=== PATIENT | female | born 1980 | race African-American/Black ===

== ENCOUNTER 2017-09-24 17:35 | Emergency (ER) | payer OTHER ==
[~2017-09-24] VITALS: Ht 154.9 cm; Wt 75.8 kg
--- NOTE | ~2017-09-24 | EKG ---
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 : 1980 Requested By: Ari Hinton Order Number: [id number] MD: Rolando Ruiz Measurements Intervals [place] Rate: 82 P: 48 MN: 167 QRS: -17 QRSD: 95 T: 2 QT: 402 QTc: 470 Interpretive Statements Sinus rhythm Borderline T abnormalities, anterior leads Compared to ECG 04/24/2010 10:19:49 T-wave abnormality now present Electronically Signed On 09-25-2017 8:12:40 [employer] by Rolando Ruiz [email or web address] <ELECTRONICALLY SIGNED> By: Rolando Ruiz MD, [facility] [id number] 15 15 Rolando Ruiz MD, [facility] /EPI
[~2017-09-24 17:35] MED LIST: AMITRIPTYLINE H10 M1 PO; COLACE100 MG PO; HYDROCHLOROTHIA25 M2 PO; MEDROLDOSEPACK PO; NORCO 5-325 TA1 EACH PO; NORTRIPTYLINE H10 M2 PO; PEPCID AC20 MG PO
[2017-09-24] MEDS ORDERED: NORTRIPTYLINE H25 M3 PO (18:19)
[2017-09-24] MEDS ORDERED: HYDROCHLOROTHIA25 M2 PO (18:19)
[2017-09-24] MEDS ORDERED: SEROQUEL 50 MG50 MG PO (18:19)
== END 2017-09-24 18:51 | disposition home or self-care (01) ==
LOC: ER 17:35
DX: I10 Essential (primary) hypertension (principal); R51 Headache